=== PATIENT | female | born 1950 | race Two or more races ===

== ENCOUNTER 2023-09-28 13:23 | Inpatient (IN) | payer OTHER ==
[~2023-09-28] VITALS: Ht 154.9 cm; Wt 77.1 kg
--- NOTE | 2023-09-28 14:07 | NUR ---
PTE ALERTA Y ORIENTADA X3 EJN COMPANIA DE FAMILIAR. LA MISMA REFIERE VOMITOS X6 Y MAREOS. SE MIDEN S/V Y SE UBICA.
[2023-09-28] MEDS ORDERED: FAMOTIDINE/PF 20 MG/2 ML VIAL IV ONE (17:45)
[2023-09-28] MEDS ORDERED: ONDANSETRON HCL 2 MG/ML VIAL IV ONE (17:45)
[2023-09-28] MEDS ORDERED: ONDANSETRON HCL 2 MG/ML VIAL ONE (17:49)
[2023-09-28] MEDS ORDERED: FAMOTIDINE/PF 20 MG/2 ML VIAL ONE (17:49)
--- NOTE | 2023-09-28 17:50 | NUR ---
SE ORIENTA A PACIENTE SOBRE TX MEDICO, REFIERE ENTENDER. SE REALIZAN MUESTRAS DE LABORATORIO BAJO MEDIDAS ASEPTICAS. SE ADMINISTRAN MEDICAMENTOS BINDU ORDEN MEDICA. SE COORDINA CT. PENDIENTE RE-EVALUACION MEDICA.
--- NOTE | 2023-09-28 17:55 | NUR ---
JUAN PABLO DINH POR .
[2023-09-28 18:15] LABS: HEMATOCRIT 31.4 % (36.0-45.00); HEMOGLOBIN 10.4 g/dL (12.0-15.00); MEAN CELL VOLUME 85.3 fL (80.00-100.00); MEAN CORPUSCULAR HEMOGLOBIN 28.2 pg (27.00-32.0); PLATELET COUNT 301 K/uL (150-450); RED BLOOD COUNT 3.68 M/uL (4.00-6.00); RED CELL DISTRIBUTION WIDTH 13.2 % (11.5-14.5)
[2023-09-28] MEDS ORDERED: INSULIN REGULAR, HUMAN 1,000 UNIT/10 ML UNITS IV ONE (18:15)
[2023-09-28 18:16] LABS: URINE APPEARANCE Clear; URINE BILIRRUBIN Negative (NEGATIVE); URINE BLOOD Negative; URINE COLOR Yellow; URINE LEUKOCYTE Negative; URINE NITRATE Negative; URINE UROBILINOGEN 0.2 E.U./dl
[2023-09-28 18:24] LABS: URINE EPITHELIAL CELLS 8.8 uL (0.0-38.8)
[2023-09-28 18:34] LABS: URINE BACTERIA > 9821.5 uL (0.0-1933); URINE GLUCOSE >=1000 MG/DL (NEGATIVE); URINE PROTEIN 300 (NEGATIVE)
[2023-09-28 18:40] LABS: ALBUMIN 3.4 gm/dL (3.4-5.0); BILIRUBIN TOTAL 0.33 mg/dL (0.3-1.2); CALCIUM 9.5 mg/dL (8.5-10.1); CREATININE SERUM 2.06 mg/dL (0.55-1.02); GFR 23.74; GLOBULINA 4.4 G/DL (2.4-3.5); POTASSIUM 4.7 mEq/L (3.5-5.1); TOTAL PROTEIN 7.8 gm/dL (6.4-8.2)
[2023-09-28] MEDS ORDERED: CEFTRIAXONE SODIUM 2,000 MG VIAL ONE (20:52)
[2023-09-28] MEDS ORDERED: CEFTRIAXONE SODIUM 2,000 MG VIAL IV ONE (21:00)
[2023-09-28 21:09] LABS: ABG PH 7.381 (7.35-7.45); ABG pCO2 42.6 mmHg (35-45)
[2023-09-28 21:10] LABS: ABG PO2 54.2 mmHg (80-100); BASE EXCESS -0.5 mmol/l; BICARBONATE 24.7 mmol/l (23-25); SaO2 87.1 %
[2023-09-28 21:11] LABS: allen test SATISFACTORY; o2 21 %; puncture site RADIAL RIGHT
[2023-09-28] MEDS ORDERED: 0.9 % SODIUM CHLORIDE 1,000 ML IV SCH (22:30)
[2023-09-28] MEDS ORDERED: IPRATROPIUM BROMIDE 0.5 MG/2.5 ML AMPUL.NEB IH SCH (22:32)
[2023-09-28] MEDS ORDERED: hydrALAZINE HCL 25 MG TABLET PO SCH (22:34)
[2023-09-28] MEDS ORDERED: ACETAMINOPHEN 500 MG GEL..CAP PO PRN (22:45)
[2023-09-28] MEDS ORDERED: DEXTROSE 50 % IN WATER 0.5 G/ML DISP.SYRIN IV PRN (22:45)
[2023-09-28] MEDS ORDERED: INSULIN LISPRO 1,000 UNIT/10 ML UNITS SUBCUTANEO PRN (22:45)
[2023-09-29] MEDS ORDERED: IPRATROPIUM BROMIDE 0.5 MG/2.5 ML AMPUL.NEB IH ONE ×3 (00:15→16:22)
[2023-09-29 02:50] LABS: MAGNESIUM 2.3 mg/dL (1.8-2.4); PHOSPHOROUS 3.2 mg/dL (2.5-4.9)
[2023-09-29 02:55] LABS: D DIMER 0.87 MG/L; INR 0.98; PARTIAL THROMBOPLASTIN TIME 25.9 SECONDS (22.0-34.0); PROTHROMBIN TIME 10.3 SECONDS (9.0-11.5)
[2023-09-29] MEDS ORDERED: ONDANSETRON HCL 2 MG/ML VIAL ONE (03:48)
[2023-09-29] MEDS ORDERED: hydrALAZINE HCL 20 MG VIAL IV PRN (05:15)
[2023-09-29] MEDS ORDERED: SODIUM CHLORIDE 0.45 % 1,000 ML IV SCH (05:15)
[2023-09-29] MEDS ORDERED: DEXTROSE 50 % IN WATER 0.5 G/ML VIAL IV PRN (06:45)
[2023-09-29] MEDS ORDERED: AMLODIPINE BESYLATE 5 MG TABLET PO SCH (09:00)
[2023-09-29] MEDS ORDERED: ATORVASTATIN CALCIUM 40 MG TABLET PO SCH (09:00)
[2023-09-29] MEDS ORDERED: INSULIN GLARGINE,HUM.REC.ANLOG 1,000 UNITS/10 ML UNITS SUBCUTANEO SCH (09:00)
[2023-09-29] MEDS ORDERED: CEFTRIAXONE SODIUM 2,000 MG in 0.9 % SODIUM CHLORIDE 100 ML IV SCH (09:00)
[2023-09-29] MEDS ORDERED: INSULIN LISPRO 1,000 UNIT/10 ML UNITS SUBCUTANEO SCH (12:00)
[2023-09-29] MEDS ORDERED: INSULIN LISPRO 1,000 UNIT/10 ML UNITS SUBCUTANEO ONE ×2 (13:50→17:09)
[2023-09-29] MEDS ORDERED: CEFTRIAXONE SODIUM 2,000 MG VIAL ONE (13:56)
[2023-09-29] MEDS ORDERED: DOXAZOSIN MESYLATE 2 MG TABLET PO SCH (20:14)
[2023-09-30 07:11] LABS: HEMATOCRIT 28.7 % (36.0-45.00); HEMOGLOBIN 9.6 g/dL (12.0-15.00); MEAN CELL VOLUME 84.4 fL (80.00-100.00); MEAN CORPUSCULAR HEMOGLOBIN 28.2 pg (27.00-32.0); MEAN CORPUSCULAR HGB CONC 33.4 g/dl (32.0-36.0); PLATELET COUNT 275 K/uL (150-450); RED CELL DISTRIBUTION WIDTH 12.9 % (11.5-14.5)
[2023-09-30 07:19] LABS: PHOSPHOROUS 3.8 mg/dL (2.5-4.9)
[2023-09-30 07:20] LABS: C-REACTIVE PROTEIN 0.33 MG/DL (0.00-0.29)
[2023-09-30 07:28] LABS: BILIRUBIN TOTAL 0.26 mg/dL (0.3-1.2); CALCIUM 9.2 mg/dL (8.5-10.1); CREATININE SERUM 1.89 mg/dL (0.55-1.02); GFR 26.22; GLOBULINA 3.9 G/DL (2.4-3.5); POTASSIUM 4.67 mEq/L (3.5-5.1); TOTAL PROTEIN 6.9 gm/dL (6.4-8.2); TSH 1.54 uIU/mL (0.358-3.74)
[2023-09-30] MEDS ORDERED: NIFEDIPINE 30 MG TAB.SA.OSM PO SCH ×2 (09:00→17:00)
[2023-09-30] MEDS ORDERED: INSULIN GLARGINE,HUM.REC.ANLOG 1,000 UNITS/10 ML UNITS SUBCUTANEO SCH (09:00)
[2023-09-30] MEDS ORDERED: ENOXAPARIN SODIUM 80 MG/0.8 ML SYRINGE SUBCUTANEO SCH (12:31)
[2023-09-30] MEDS ORDERED: PHENOL 177 ML BOTTLE MM SCH (17:00)
[2023-09-30 19:39] LABS: ABG PH 7.394 (7.35-7.45); ABG PO2 75.8 mmHg (80-100); ABG pCO2 39.4 mmHg (35-45); BASE EXCESS -1.1 mmol/l; SaO2 94.9 %
[2023-09-30 19:40] LABS: BICARBONATE 23.6 mmol/l (23-25); Tco2 24.8 mmol/l
[2023-09-30 19:44] LABS: allen test SATISFACTORY; o2 21 %; puncture site RADIAL LEFT
[2023-10-01] MEDS ORDERED: INSULIN LISPRO 1,000 UNIT/10 ML UNITS SUBCUTANEO SCH (09:42)
[2023-10-02 08:06] LABS: ALBUMIN 2.8 gm/dL (3.4-5.0); BILIRUBIN TOTAL 0.35 mg/dL (0.3-1.2); CALCIUM 8.5 mg/dL (8.5-10.1); CREATININE SERUM 1.53 mg/dL (0.55-1.02); GFR 33.46; GLOBULINA 3.1 G/DL (2.4-3.5); MAGNESIUM 1.8 mg/dL (1.8-2.4); PHOSPHOROUS 3.6 mg/dL (2.5-4.9); POTASSIUM 4.25 mEq/L (3.5-5.1); TOTAL PROTEIN 5.9 gm/dL (6.4-8.2)
[2023-10-02 08:15] LABS: HEMATOCRIT 25.6 % (36.0-45.00); MEAN CELL VOLUME 85.1 fL (80.00-100.00); MEAN CORPUSCULAR HEMOGLOBIN 28.5 pg (27.00-32.0); MEAN CORPUSCULAR HGB CONC 33.4 g/dl (32.0-36.0); PLATELET COUNT 224 K/uL (150-450); RED BLOOD COUNT 3.01 M/uL (4.00-6.00); RED CELL DISTRIBUTION WIDTH 12.7 % (11.5-14.5)
[2023-10-02 08:18] LABS: HEMOGLOBIN 8.6 g/dL (12.0-15.00)
[2023-10-02] MEDS ORDERED: ENOXAPARIN SODIUM 40 MG/0.4 ML SYRINGE SUBCUTANEO SCH (09:00)
[2023-10-02] MEDS ORDERED: CLOPIDOGREL BISULFATE 75 MG TABLET PO SCH (09:00)
[2023-10-02 10:22] LABS: PH,URINE 5.5 (5.0-8.0); URINE APPEARANCE Cloudy; URINE BILIRRUBIN Negative (NEGATIVE); URINE BLOOD Negative; URINE COLOR Yellow; URINE LEUKOCYTE Moderate; URINE NITRATE Negative; URINE UROBILINOGEN 0.2 E.U./dl
[2023-10-02 10:23] LABS: URINE BACTERIA 866.8 uL (0.0-1933); URINE EPITHELIAL CELLS 192.6 uL (0.0-38.8); URINE RBC 3.3 uL (0.0-20.8); URINE WBC 632.3 uL (0.0-23.2)
[2023-10-02 10:57] LABS: URINE GLUCOSE 250 MG/DL (NEGATIVE); URINE PROTEIN 100 (NEGATIVE)
[2023-10-02] MEDS ORDERED: MINERAL OIL 30 ML BLIST.PACK PO NR (14:45)
[2023-10-02] MEDS ORDERED: FUROsemide 20 MG/2 ML VIAL IV SCH (14:45)
[2023-10-02] MEDS ORDERED: MAGNESIUM HYDROXIDE 30 ML BLIST.PACK PO NR (14:45)
[2023-10-02] MEDS ORDERED: LACTULOSE 20 G/30 ML BLIST.PACK PO NR (14:45)
[2023-10-03 01:30] LABS: ob NEGATIVE (NEGATIVE)
[2023-10-03] MEDS ORDERED: MAGNESIUM HYDROXIDE 30 ML BLIST.PACK PO NR (13:15)
[2023-10-03] MEDS ORDERED: MINERAL OIL 30 ML BLIST.PACK PO NR (13:15)
[2023-10-03] MEDS ORDERED: LACTULOSE 20 G/30 ML BLIST.PACK PO NR (13:15)
[2023-10-04] MEDS ORDERED: CLOTRIMAZOLE 10 MG TROCHE MM SCH (09:00)
[2023-10-04 15:24] LABS: HEMATOCRIT 34.4 % (36.0-45.00); HEMOGLOBIN 11.7 g/dL (12.0-15.00); MEAN CELL VOLUME 84.8 fL (80.00-100.00); MEAN CORPUSCULAR HEMOGLOBIN 28.7 pg (27.00-32.0); MEAN CORPUSCULAR HGB CONC 33.9 g/dl (32.0-36.0); PLATELET COUNT 229 K/uL (150-450); RED BLOOD COUNT 4.06 M/uL (4.00-6.00)
[2023-10-04] MEDS ORDERED: CEFEPIME HCL 2,000 MG VIAL IV SCH (17:00)
[2023-10-06 08:18] LABS: HEMOGLOBIN 11.1 g/dL (12.0-15.00); MEAN CELL VOLUME 83.6 fL (80.00-100.00); MEAN CORPUSCULAR HEMOGLOBIN 28.2 pg (27.00-32.0); MEAN CORPUSCULAR HGB CONC 33.8 g/dl (32.0-36.0); PLATELET COUNT 217 K/uL (150-450); RED BLOOD COUNT 3.95 M/uL (4.00-6.00); RED CELL DISTRIBUTION WIDTH 13.3 % (11.5-14.5)
[2023-10-06 08:56] LABS: ALBUMIN 2.8 gm/dL (3.4-5.0); BILIRUBIN TOTAL 0.4 mg/dL (0.3-1.2); CREATININE SERUM 1.39 mg/dL (0.55-1.02); GFR 37.38; GLOBULINA 3.9 G/DL (2.4-3.5); MAGNESIUM 2.1 mg/dL (1.8-2.4); PHOSPHOROUS 3.2 mg/dL (2.5-4.9); POTASSIUM 4.38 mEq/L (3.5-5.1); TOTAL PROTEIN 6.7 gm/dL (6.4-8.2)
[2023-10-06] MEDS ORDERED: VANCOMYCIN HCL 1,000 MG VIAL IV NR (15:30)
[2023-10-06] MEDS ORDERED: CLOPIDOGREL BIS75 MG PO (17:39)
[2023-10-06] MEDS ORDERED: HYDRALAZINE HCL25 MG PO (17:40)
[2023-10-06] MEDS ORDERED: LIPITOR40 M1 PO (17:40)
[2023-10-06] MEDS ORDERED: CLOTRIMAZOLE10 MG MM (17:41)
[2023-10-06] MEDS ORDERED: DOXAZOSIN MESYLA2 MG PO (17:43)
[2023-10-06] MEDS ORDERED: NIFEDIPINE ER30 MG PO (17:43)
[2023-10-06] MEDS ORDERED: AMPICILLIN TRI500 MG PO (17:52)
== END 2023-10-06 18:06 | disposition home or self-care (01) | DRG 690 ==
LOC: ER 13:24 → SEC-K 22:37 → MEDI 09-29 16:28 → MEDJ 10-03 13:58
PROVIDERS: General Practice; Internal Medicine; Internal Medicine Endocrinology, Diabetes & Metabolism; Internal Medicine Infectious Disease; Internal Medicine Nephrology; Nurse Practitioner Family; ADMIT Internal Medicine; ATTEND Internal Medicine
PROC: B020ZZZ Computerized Tomography (CT Scan) of Brain (ICD-10-PCS; principal; 2023-09-28)
PROC: B246ZZZ Ultrasonography of Right and Left Heart (ICD-10-PCS; 2023-09-29)
PROC: 3E0F7GC Introduction of Other Therapeutic Substance into Respiratory Tract, Via Natural or Artificial Opening (ICD-10-PCS; 2023-09-29)
PROC: B54DZZZ Ultrasonography of Bilateral Lower Extremity Veins (ICD-10-PCS; 2023-09-30)
PROC: CB121ZZ Planar Nuclear Medicine Imaging of Lungs and Bronchi using Technetium 99m (Tc-99m) (ICD-10-PCS; 2023-09-30)
PROC: 4A12X4Z Monitoring of Cardiac Electrical Activity, External Approach (ICD-10-PCS; 2023-09-30)
PROC: 30233N1 Transfusion of Nonautologous Red Blood Cells into Peripheral Vein, Percutaneous Approach (ICD-10-PCS; 2023-10-03)
DX: N39.0 Urinary tract infection, site not specified (principal); N17.9 Acute kidney failure, unspecified; B37.0 Candidal stomatitis; R09.02 Hypoxemia; D64.89 Other specified anemias; E11.65 Type 2 diabetes mellitus with hyperglycemia; K59.00 Constipation, unspecified; K21.9 Gastro-esophageal reflux disease without esophagitis; K44.9 Diaphragmatic hernia without obstruction or gangrene; I73.89 Other specified peripheral vascular diseases; I13.10 Hypertensive heart and chronic kidney disease without heart failure, with stage 1 through stage 4 chronic kidney disease, or unspecified chronic kidney disease; E11.22 Type 2 diabetes mellitus with diabetic chronic kidney disease; D63.1 Anemia in chronic kidney disease; N18.9 Chronic kidney disease, unspecified; E03.9 Hypothyroidism, unspecified; Z86.73 Personal history of transient ischemic attack (TIA), and cerebral infarction without residual deficits; B95.2 Enterococcus as the cause of diseases classified elsewhere

== ENCOUNTER 2024-01-13 11:31 | Inpatient (IN) | payer OTHER ==
[~2024-01-13] VITALS: Ht 157.5 cm; Wt 81.6 kg
[~2024-01-13 11:31] MED LIST: AMPICILLIN TRI500 MG PO; CLOPIDOGREL BIS75 MG PO; CLOTRIMAZOLE10 MG MM; DOXAZOSIN MESYLA2 MG PO; HYDRALAZINE HCL25 MG PO; LIPITOR40 M1 PO; NIFEDIPINE ER30 MG PO
[2024-01-13] MEDS ORDERED: FUROsemide 20 MG/2 ML VIAL IV ONE (12:00)
[2024-01-13] MEDS ORDERED: ENALAPRILAT DIHYDRATE 2.5 MG/2 ML VIAL IV ONE (12:00)
[2024-01-13 13:12] LABS: HEMATOCRIT 39.8 % (36.0-45.00); MEAN CELL VOLUME 85.4 fL (80.00-100.00); MEAN CORPUSCULAR HEMOGLOBIN 27.8 pg (27.00-32.0); MEAN CORPUSCULAR HGB CONC 32.5 g/dl (32.0-36.0); PLATELET COUNT 280 K/uL (150-450); RED BLOOD COUNT 4.66 M/uL (4.00-6.00); RED CELL DISTRIBUTION WIDTH 14.1 % (11.5-14.5)
[2024-01-13 13:53] LABS: URINE APPEARANCE Turbid; URINE BILIRRUBIN Negative (NEGATIVE); URINE BLOOD Large; URINE COLOR Yellow; URINE EPITHELIAL CELLS 40.8 uL (0.0-38.8); URINE KETONE 15 (NEGATIVE); URINE LEUKOCYTE Moderate; URINE NITRATE Negative; URINE PROTEIN >=1000 (NEGATIVE); URINE RBC 703.1 uL (0.0-20.8); URINE UROBILINOGEN 0.2 E.U./dl
[2024-01-13 13:59] LABS: ALBUMIN 2.9 gm/dL (3.4-5.0); BILIRUBIN TOTAL 0.68 mg/dL (0.3-1.2); CALCIUM 9.3 mg/dL (8.5-10.1); CREATININE SERUM 2.03 mg/dL (0.55-1.02); GFR 24.07; GLOBULINA 5.1 G/DL (2.4-3.5); POTASSIUM 3.2 mEq/L (3.5-5.1)
[2024-01-13 14:01] LABS: URINE BACTERIA > 9821.5 uL (0.0-1933); URINE CAST > 21.83 uL (0.0-1.40); URINE GLUCOSE >=1000 MG/DL (NEGATIVE); URINE WBC > 5548.3 uL (0.0-23.2)
[2024-01-13 14:02] LABS: URINE YEAST MODERATE /hpf
[2024-01-13] MEDS ORDERED: INSULIN REGULAR, HUMAN 1,000 UNIT/10 ML UNITS IV ONE (14:15)
[2024-01-13] MEDS ORDERED: CEFTRIAXONE SODIUM 1,000 MG VIAL IV ONE (14:30)
[2024-01-13] MEDS ORDERED: CEFTRIAXONE SODIUM 2,000 MG in 0.9 % SODIUM CHLORIDE 100 ML IV SCH (17:53)
[2024-01-13] MEDS ORDERED: INSULIN LISPRO 1,000 UNIT/10 ML UNITS SUBCUTANEO PRN (18:00)
[2024-01-13] MEDS ORDERED: CLEVIDIPINE BUTYRATE 100 ML IV SCH (18:00)
[2024-01-13] MEDS ORDERED: 0.9 % SODIUM CHLORIDE 1,000 ML IV SCH (18:00)
[2024-01-13] MEDS ORDERED: DEXTROSE 50 % IN WATER 0.5 G/ML DISP.SYRIN IV PRN (18:00)
[2024-01-13] MEDS ORDERED: ACETAMINOPHEN 500 MG GEL..CAP PO PRN (18:00)
[2024-01-13 19:30] VITALS: BP 149/82; O2SAT 98
[2024-01-13 20:00] LABS: INR 1.08; PARTIAL THROMBOPLASTIN TIME 25.6 SECONDS (22.0-34.0); PROTHROMBIN TIME 11.7 SECONDS (9.0-11.5)
[2024-01-13 20:05] LABS: PHOSPHOROUS 2.4 mg/dL (2.5-4.9)
[2024-01-13 20:09] VITALS: BP 144/73
[2024-01-13 20:30] VITALS: BP 197/98; O2SAT 96
[2024-01-13 21:07] VITALS: BP 190/108; O2SAT 97
[2024-01-13 21:30] VITALS: BP 152/87; O2SAT 98
[2024-01-14] VITALS (11 sets, daily range): BP systolic 116–160; BP diastolic 65–89; O2SAT 95–99
[2024-01-14 06:24] LABS: HEMATOCRIT 39.2 % (36.0-45.00); HEMOGLOBIN 13.3 g/dL (12.0-15.00); MEAN CELL VOLUME 83.6 fL (80.00-100.00); MEAN CORPUSCULAR HEMOGLOBIN 28.5 pg (27.00-32.0); PLATELET COUNT 281 K/uL (150-450); RED BLOOD COUNT 4.69 M/uL (4.00-6.00); RED CELL DISTRIBUTION WIDTH 14.1 % (11.5-14.5)
[2024-01-14 07:02] LABS: ALBUMIN 2.8 gm/dL (3.4-5.0); BILIRUBIN TOTAL 0.33 mg/dL (0.3-1.2); CALCIUM 9.6 mg/dL (8.5-10.1); CREATININE SERUM 2.11 mg/dL (0.55-1.02); GFR 23.02; GLOBULINA 4.7 G/DL (2.4-3.5); MAGNESIUM 1.9 mg/dL (1.8-2.4); TOTAL PROTEIN 7.5 gm/dL (6.4-8.2)
[2024-01-14 07:17] LABS: C-REACTIVE PROTEIN 1.52 MG/DL (0.00-0.29)
[2024-01-14 07:18] LABS: POTASSIUM 2.94 mEq/L (3.5-5.1)
[2024-01-14 07:19] LABS: PHOSPHOROUS 1.7 mg/dL (2.5-4.9)
[2024-01-14] MEDS ORDERED: POTASSIUM CHLORIDE IN WATER 100 ML IV NR (07:30)
[2024-01-14] MEDS ORDERED: SODIUM CHLORIDE 0.45 % 1,000 ML IV SCH (07:30)
[2024-01-14] MEDS ORDERED: POTASSIUM PHOS,M-BASIC-D-BASIC 15 MM in 0.9 % SODIUM CHLORIDE 250 ML IV NR (07:30)
[2024-01-14] MEDS ORDERED: 0.9 % SODIUM CHLORIDE 1,000 ML IV SCH (09:00)
[2024-01-14] MEDS ORDERED: FAMOTIDINE/PF 20 MG in 0.9 % SODIUM CHLORIDE 8 ML IV PUSH SCH (09:00)
[2024-01-14] MEDS ORDERED: ATORVASTATIN CALCIUM 40 MG TABLET PO SCH (09:00)
[2024-01-14] MEDS ORDERED: FLUCONAZOLE IN NACL,ISO-OSM 200 MG/100 ML PIGGYBAG IV ONE (14:45)
[2024-01-14] MEDS ORDERED: hydrALAZINE HCL 50 MG TABLET PO SCH (17:00)
[2024-01-15] VITALS (17 sets, daily range): BP systolic 119–165; BP diastolic 65–96; O2SAT 95–100
[2024-01-15 07:48] LABS: HEMATOCRIT 37.8 % (36.0-45.00); HEMOGLOBIN 12.5 g/dL (12.0-15.00); MEAN CELL VOLUME 85.4 fL (80.00-100.00); MEAN CORPUSCULAR HEMOGLOBIN 28.2 pg (27.00-32.0); PLATELET COUNT 298 K/uL (150-450); RED BLOOD COUNT 4.43 M/uL (4.00-6.00); RED CELL DISTRIBUTION WIDTH 14.2 % (11.5-14.5)
[2024-01-15 07:57] LABS: ALBUMIN 2.8 gm/dL (3.4-5.0); CALCIUM 8.7 mg/dL (8.5-10.1); CREATININE SERUM 1.97 mg/dL (0.55-1.02); GFR 24.92; MAGNESIUM 1.7 mg/dL (1.8-2.4); PHOSPHOROUS 3.2 mg/dL (2.5-4.9); POTASSIUM 3.28 mEq/L (3.5-5.1)
[2024-01-15] MEDS ORDERED: AMLODIPINE BESYLATE 5 MG TABLET PO SCH (09:00)
[2024-01-15] MEDS ORDERED: hydrALAZINE HCL 50 MG TABLET PO SCH ×2 (09:00→17:00)
[2024-01-15] MEDS ORDERED: FLUCONAZOLE IN NACL,ISO-OSM 50 ML IV SCH (12:00)
[2024-01-15] MEDS ORDERED: DOXAZOSIN MESYLATE 2 MG TABLET PO SCH (17:00)
[2024-01-15] MEDS ORDERED: FLUCONAZOLE IN NACL,ISO-OSM 2 MG/ML ML IV SCH (17:00)
[2024-01-16 04:00] VITALS: BP 109/64; O2SAT 97
[2024-01-16 07:38] VITALS: BP 164/81; O2SAT 99
[2024-01-16 08:21] LABS: PH,URINE 5.5 (5.0-8.0); URINE APPEARANCE Turbid; URINE BILIRRUBIN Negative (NEGATIVE); URINE BLOOD NHT; URINE COLOR Yellow; URINE KETONE 15 (NEGATIVE); URINE LEUKOCYTE Moderate; URINE NITRATE Negative
[2024-01-16 08:25] LABS: URINE BACTERIA 1713.5 uL (0.0-1933); URINE EPITHELIAL CELLS 154.6 uL (0.0-38.8); URINE RBC 42.7 uL (0.0-20.8)
[2024-01-16 09:15] LABS: URINE CAST > 21.83 uL (0.0-1.40); URINE GLUCOSE 500 MG/DL (NEGATIVE); URINE PROTEIN 300 (NEGATIVE); URINE WBC > 5548.3 uL (0.0-23.2)
[2024-01-16 09:16] LABS: URINE YEAST MODERATE /hpf
[2024-01-16 12:00] VITALS: BP 141/77; O2SAT 97
[2024-01-16] MEDS ORDERED: INSULIN GLARGINE,HUM.REC.ANLOG 1,000 UNITS/10 ML UNITS SUBCUTANEO STA (12:00)
[2024-01-16 15:17] VITALS: BP 142/76; O2SAT 100
[2024-01-16 20:00] VITALS: BP 152/82; O2SAT 97
[2024-01-16] MEDS ORDERED: POTASSIUM CHLORIDE 20MEQ/100ML H2O PB IV SCH (20:15)
[2024-01-16 23:43] VITALS: BP 138/75; O2SAT 100
[2024-01-17] VITALS (8 sets, daily range): BP systolic 119–152; BP diastolic 69–83; O2SAT 96–100
[2024-01-17 06:25] LABS: URINE APPEARANCE Clear; URINE BILIRRUBIN Negative (NEGATIVE); URINE BLOOD Negative; URINE COLOR Yellow; URINE KETONE Negative (NEGATIVE); URINE LEUKOCYTE Negative; URINE NITRATE Negative; URINE UROBILINOGEN 0.2 E.U./dl
[2024-01-17 06:29] LABS: URINE BACTERIA 17.6 uL (0.0-1933); URINE RBC 12.2 uL (0.0-20.8)
[2024-01-17 06:30] LABS: URINE GLUCOSE 500 MG/DL (NEGATIVE); URINE PROTEIN 100 (NEGATIVE)
[2024-01-17 06:59] LABS: ALBUMIN 2.4 gm/dL (3.4-5.0); BILIRUBIN TOTAL 0.37 mg/dL (0.3-1.2); CREATININE SERUM 1.71 mg/dL (0.55-1.02); GFR 29.34; GLOBULINA 3.4 G/DL (2.4-3.5); MAGNESIUM 1.5 mg/dL (1.8-2.4); POTASSIUM 3.56 mEq/L (3.5-5.1); TOTAL PROTEIN 5.8 gm/dL (6.4-8.2)
[2024-01-17] MEDS ORDERED: INSULIN LISPRO 1,000 UNIT/10 ML UNITS SUBCUTANEO SCH (08:00)
[2024-01-17] MEDS ORDERED: INSULIN GLARGINE,HUM.REC.ANLOG 1,000 UNITS/10 ML UNITS SUBCUTANEO SCH (09:00)
[2024-01-18] VITALS (7 sets, daily range): BP systolic 143–170; BP diastolic 70–75; O2SAT 90–98
[2024-01-18] MEDS ORDERED: AMLODIPINE BESYLATE 10 MG TABLET PO SCH (09:00)
[2024-01-18] MEDS ORDERED: MAGNESIUM SULFATE/D5W 100 ML IV NR (16:00)
[2024-01-19] VITALS (8 sets, daily range): BP systolic 132–142; BP diastolic 60–78; O2SAT 95–98
[2024-01-19 06:11] LABS: HEMATOCRIT 27.6 % (36.0-45.00); MEAN CELL VOLUME 83.8 fL (80.00-100.00); MEAN CORPUSCULAR HGB CONC 33.8 g/dl (32.0-36.0); PLATELET COUNT 190 K/uL (150-450); RED BLOOD COUNT 3.29 M/uL (4.00-6.00); RED CELL DISTRIBUTION WIDTH 14.2 % (11.5-14.5)
[2024-01-19 06:30] LABS: MEAN CORPUSCULAR HEMOGLOBIN 28.2 pg (27.00-32.0)
[2024-01-19 06:31] LABS: HEMOGLOBIN 9.3 g/dL (12.0-15.00)
[2024-01-19 07:09] LABS: ALBUMIN 2.2 gm/dL (3.4-5.0); BILIRUBIN TOTAL 0.28 mg/dL (0.3-1.2); CREATININE SERUM 1.74 mg/dL (0.55-1.02); GFR 28.76; GLOBULINA 3.2 G/DL (2.4-3.5); MAGNESIUM 1.6 mg/dL (1.8-2.4); PHOSPHOROUS 3.7 mg/dL (2.5-4.9); POTASSIUM 3.5 mEq/L (3.5-5.1); TOTAL PROTEIN 5.4 gm/dL (6.4-8.2)
[2024-01-19] MEDS ORDERED: FAMOtidine 20 MG TABLET PO SCH (09:00)
[2024-01-19] MEDS ORDERED: VITAMIN B COMPLEX 1 EACH PO SCH (20:07)
[2024-01-19] MEDS ORDERED: SOD FERRIC GLUC COMPLX/SUCROSE 125 MG in 0.9 % SODIUM CHLORIDE 100 ML IV SCH (20:07)
[2024-01-19] MEDS ORDERED: Cyanocobalamin/Mecobalamin 1 TAB.SL SL SCH (20:08)
[2024-01-20] VITALS (9 sets, daily range): BP systolic 120–157; BP diastolic 67–77; O2SAT 90–99
[2024-01-20 05:39] LABS: FERRITIN 287.5 NG/ML (8-252)
[2024-01-20] MEDS ORDERED: SOD FERRIC GLUC COMPLX/SUCROSE 62.5 MG in 0.9 % SODIUM CHLORIDE 50 ML IV SCH (09:00)
[2024-01-20 11:09] LABS: FOLIC ACID 5.86 ng/ml (4.78-20)
[2024-01-21] VITALS (8 sets, daily range): BP systolic 113–143; BP diastolic 65–69; O2SAT 90–900
[2024-01-21 06:33] LABS: HEMATOCRIT 25.2 % (36.0-45.00); MEAN CELL VOLUME 85.3 fL (80.00-100.00); MEAN CORPUSCULAR HGB CONC 33.5 g/dl (32.0-36.0); PLATELET COUNT 194 K/uL (150-450); RED BLOOD COUNT 2.96 M/uL (4.00-6.00); RED CELL DISTRIBUTION WIDTH 14.1 % (11.5-14.5)
[2024-01-21 06:48] LABS: BILIRUBIN TOTAL 0.2 mg/dL (0.3-1.2); CALCIUM 7.7 mg/dL (8.5-10.1); CREATININE SERUM 1.65 mg/dL (0.55-1.02); GFR 30.58; MAGNESIUM 1.5 mg/dL (1.8-2.4); POTASSIUM 3.3 mEq/L (3.5-5.1)
[2024-01-21 06:55] LABS: MEAN CORPUSCULAR HEMOGLOBIN 28.3 pg (27.00-32.0)
[2024-01-21 06:56] LABS: HEMOGLOBIN 8.4 g/dL (12.0-15.00)
[2024-01-21] MEDS ORDERED: POTASSIUM CHLORIDE 20MEQ/100ML H2O PB IV NR (07:30)
[2024-01-21] MEDS ORDERED: MAGNESIUM SULFATE IN WATER 2 GM/50 ML PIGGYBAG IV NR (07:30)
[2024-01-21] MEDS ORDERED: FUROsemide 20 MG/2 ML VIAL IV SCH (11:00)
[2024-01-22] VITALS (10 sets, daily range): BP systolic 120–138; BP diastolic 63–74; O2SAT 90–100
[2024-01-23 02:27] VITALS: BP 129/69; O2SAT 99
[2024-01-23 05:49] VITALS: O2SAT 95
[2024-01-23] MEDS ORDERED: INSULIN LISPRO 1,000 UNIT/10 ML UNITS SUBCUTANEO SCH ×2 (08:00→12:00)
[2024-01-23 08:30] VITALS: BP 132/69; O2SAT 98
[2024-01-23 12:54] LABS: MEAN CELL VOLUME 86.1 fL (80.00-100.00); MEAN CORPUSCULAR HEMOGLOBIN 28.9 pg (27.00-32.0); MEAN CORPUSCULAR HGB CONC 33.5 g/dl (32.0-36.0); PLATELET COUNT 239 K/uL (150-450); RED BLOOD COUNT 3.83 M/uL (4.00-6.00); RED CELL DISTRIBUTION WIDTH 14.2 % (11.5-14.5)
[2024-01-23 13:36] LABS: ALBUMIN 2.2 gm/dL (3.4-5.0); BILIRUBIN TOTAL 0.35 mg/dL (0.3-1.2); CALCIUM 7.9 mg/dL (8.5-10.1); CREATININE SERUM 1.53 mg/dL (0.55-1.02); GFR 33.36; GLOBULINA 3.5 G/DL (2.4-3.5); TOTAL PROTEIN 5.7 gm/dL (6.4-8.2)
[2024-01-23 14:00] VITALS: O2SAT 98
[2024-01-23 16:00] VITALS: BP 142/70; O2SAT 96
[2024-01-25 13:11] LABS: a:g ratio 0.8 (0.7-1.7); alpha 1 g 0.2 g/dL (0.0-0.4); alpha 2 0.9 g/dL (0.4-1.0); beta g 0.9 g/dL (0.7-1.3); gamma g 0.9 g/dL (0.4-1.8); globulin t 2.9 g/dL (2.2-3.9); prot total 5.2 g/dL (6.0-8.5)
== END 2024-01-23 17:16 | disposition home or self-care (01) | DRG 281 ==
LOC: ER 11:31 → ICU-2 18:45 → ICU 01-15 20:45 → MEDI 01-17 13:38
PROVIDERS: Emergency Medicine; General Practice; Internal Medicine; Internal Medicine Infectious Disease; Internal Medicine Nephrology; ADMIT Internal Medicine; ATTEND Internal Medicine
PROC: BW28ZZZ Computerized Tomography (CT Scan) of Head (ICD-10-PCS; principal; 2024-01-13)
PROC: B030ZZZ Magnetic Resonance Imaging (MRI) of Brain (ICD-10-PCS; 2024-01-13)
PROC: B246ZZZ Ultrasonography of Right and Left Heart (ICD-10-PCS; 2024-01-13)
PROC: B345ZZZ Ultrasonography of Bilateral Common Carotid Arteries (ICD-10-PCS; 2024-01-13)
PROC: 4A12X4Z Monitoring of Cardiac Electrical Activity, External Approach (ICD-10-PCS; 2024-01-17)
PROC: 30233N1 Transfusion of Nonautologous Red Blood Cells into Peripheral Vein, Percutaneous Approach (ICD-10-PCS; 2024-01-22)
DX: I21.4 Non-ST elevation (NSTEMI) myocardial infarction (principal); E87.0 Hyperosmolality and hypernatremia; I16.1 Hypertensive emergency; N39.0 Urinary tract infection, site not specified; N17.8 Other acute kidney failure; R78.81 Bacteremia; G45.8 Other transient cerebral ischemic attacks and related syndromes; I12.9 Hypertensive chronic kidney disease with stage 1 through stage 4 chronic kidney disease, or unspecified chronic kidney disease; E11.22 Type 2 diabetes mellitus with diabetic chronic kidney disease; E11.65 Type 2 diabetes mellitus with hyperglycemia; E87.6 Hypokalemia; F02.80 Dementia in other diseases classified elsewhere, unspecified severity, without behavioral disturbance, psychotic disturbance, mood disturbance, and anxiety; E87.8 Other disorders of electrolyte and fluid balance, not elsewhere classified; E86.0 Dehydration; D64.9 Anemia, unspecified; Z79.4 Long term (current) use of insulin; N18.9 Chronic kidney disease, unspecified
CPT/HCPCS: 70544

== ENCOUNTER 2024-02-14 15:39 | Emergency (ER) | payer OTHER ==
[~2024-02-14] VITALS: Ht 154.9 cm; Wt 85.7 kg
[2024-02-14] MEDS ORDERED: PEPCID AC20 MG (15:48)
[2024-02-14] MEDS ORDERED: HUMALOG100 UNIT/2 (15:48)
[2024-02-14] MEDS ORDERED: AMLODIPINE-OLM1 EAC3 (15:48)
[2024-02-14] MEDS ORDERED: NEURIN (15:48)
[2024-02-14] MEDS ORDERED: LANTUS SOL100 UNIT/1 (15:48)
[2024-02-14] MEDS ORDERED: CEFTRIAXONE SODIUM 1,000 MG VIAL IM ONE (16:15)
[2024-02-14 16:33] LABS: ERYTHROCYTE SEDIMENTATION RATE 96 mm/hr
[2024-02-14 16:34] LABS: HEMATOCRIT 38.7 % (36.0-45.00); HEMOGLOBIN 12.6 g/dL (12.0-15.00); MEAN CELL VOLUME 87.7 fL (80.00-100.00); MEAN CORPUSCULAR HEMOGLOBIN 28.7 pg (27.00-32.0); MEAN CORPUSCULAR HGB CONC 32.7 g/dl (32.0-36.0); PLATELET COUNT 333 K/uL (150-450); RED BLOOD COUNT 4.41 M/uL (4.00-6.00); RED CELL DISTRIBUTION WIDTH 14.5 % (11.5-14.5)
[2024-02-14 16:57] LABS: ALBUMIN 3.1 gm/dL (3.4-5.0); BILIRUBIN TOTAL 0.24 mg/dL (0.3-1.2); CALCIUM 9.3 mg/dL (8.5-10.1); CREATININE SERUM 1.63 mg/dL (0.55-1.02); GFR 31.01; GLOBULINA 4.3 G/DL (2.4-3.5); POTASSIUM 3.71 mEq/L (3.5-5.1); TOTAL PROTEIN 7.4 gm/dL (6.4-8.2)
[2024-02-14 17:14] LABS: C-REACTIVE PROTEIN 0.29 MG/DL (0.00-0.29)
[2024-02-14] MEDS ORDERED: CEPHALEXIN750 MG PO (18:18)
[2024-02-14] MEDS ORDERED: PEPCID AC20 MG PO (18:18)
== END 2024-02-14 19:06 | disposition home or self-care (01) ==
LOC: ER 15:39
PROVIDERS: General Practice
DX: S99.822A Other specified injuries of left foot, initial encounter (principal); X58.XXXA Exposure to other specified factors, initial encounter; Y93.89 Activity, other specified; Y92.89 Other specified places as the place of occurrence of the external cause; Y99.8 Other external cause status; I10 Essential (primary) hypertension; E11.9 Type 2 diabetes mellitus without complications; Z79.4 Long term (current) use of insulin
CPT/HCPCS: 36415; 73630; 96372; 99283; J0696